=== PATIENT | female | born 1950 | race African-American/Black ===

== ENCOUNTER → 2021-02-22 | Outpatient (CLI) | payer OTHER ==
[~2021-02-22] MED LIST: ATOR40TA59 PO; DORZ10DR OP; FAMO20TA5 PO; GABA600T7 PO; IRBE1TAB3 PO; LATA2.5D2 OU; PANT40TA77 PO; SITA1TAB11 PO; TRAM50TA PO; VENL37.56 PO
--- NOTE | 2021-02-23 13:46 | RAD ---
US PELVIS W/TV History: Postmenopausal bleeding. History of cervical dysplasia. Comparison: None. Technique: Sonographic examination of the pelvis was performed with transabdominal and transvaginal t echnique. Findings: Uterus- Uterine parenchyma: Mildly heterogeneous. No focal lesions.. Uterine measurements: 6.8 x 3.0 x 4.1 cm Cervix: Unremarkable. Endometrium- Endometrial Stripe: No abnormal fluid collections in the endometrial cavity, no obvious mass, and no abnormal blood flow within the endometrium by Doppler. Thickness: 1.5 mm. Adnexa- The ovaries are not identified with transabdominal or transvaginal technique due to adjacent bowel ga s and limited sonographic windows. No adnexal masses. Fluid: No abnormal free fluid in the pelvis. Additional findings: None. Impression: 1. No endometrial masses or thickening. Endometrial thickness of 1.5 mm may represent atrophy. 2. Nonvisualization of the ovaries. No adnexal masses. Electronically signed by: Miles Pemberton MD (02/23/2021 1:43 PM) [facility]
== END ==
LOC: US 14:44
PROVIDERS: ATTEND Obstetrics & Gynecology
DX: N95.0 Postmenopausal bleeding (principal); Z87.410 Personal history of cervical dysplasia
CPT/HCPCS: 76830; 76856

== ENCOUNTER 2021-03-01 06:04 | Day surgery (SDC) | payer OTHER ==
[~2021-03-01] VITALS: Ht 157.5 cm; Wt 81.0 kg
[~2021-03-01 06:04] MED LIST changes: +HYDROmorphone 2 MG/ML VIAL IVP PRN; +IV RINGERS,LACTATED 1000ML 1,000 ML IV SCH; +MORPHINE SULFATE 2 MG/ML INJ. IVP PRN; +PROCHLORPERAZINE 10 MG/2 ML VIAL. IVP PRN; +fentaNYL PF VIAL 100 MCG/2 ML VIAL IVP PRN
[2021-03-01 06:41] VITALS: BP 175/83
[2021-03-01] MEDS ORDERED: DEXAMETHASONE SOD PHOS 4 MG/ML VIAL ONE (06:45)
[2021-03-01] MEDS ORDERED: ONDANSETRON PF 4 MG/2 ML VIAL. ONE (06:45)
[2021-03-01] MEDS ORDERED: PROPOFOL 10 MG/ML (20ML) VIAL. IV ONE (06:45)
[2021-03-01] MEDS ORDERED: BUPIVACAINE MPF 0.5% 30 ML VIAL. ONE (06:56)
[2021-03-01] MEDS ORDERED: INSULIN LISPRO 100 UNIT/ML 3ML VIAL for OP,RR ONLY. SQ PRN (07:00)
[2021-03-01] MEDS ORDERED: TRAM50TA PO (07:42)
--- NOTE | 2021-03-01 07:45 | DISCH ---
DISCHARGE INSTRUCTIONS Condition on Discharge Condition on Discharge: Stable Activity After Discharge Activity Instructions for Disc: Other, see below (Avoid hard grasping, may continue fine motor use such as eating writing typing) Lifting Instructions after Dis: No heavy lifting Weight Bearing Status after Di: As tolerated Diet after Discharge Diet after Discharge: Regular Wound Incision Care Wound/Incision Care: Ice to area for comfort, Change dressing (May remove dressing in 3 days and cover with Band-Aid, may shower but no soaking until sutures removed) Contacting the DRBrennen after DC Call your doctor for: Concerns you may have Follow-Up Follow up with: Dr. Eng or Tasha 10 days KYMBERLY ENG MD Mar 01, 2021 07:45
--- NOTE | 2021-03-01 08:14 | PDOC4 ---
Operative Note Operative Note Date of surgery: 03/01/2021 Preoperative diagnosis: Left ring trigger finger Postoperative diagnosis: Same Operative procedure: Left ring trigger finger release Surgeon: Albertina Edger Hand: Kerrie turner Anesthesia: General Estimated blood loss: 1 cc Complications: None Operative indications: Please see my orthopedic clinic note for detailed operative indications and note that patient has had ongoing symptoms of painful catching of her left ring finger unresponsive to nonoperative management we had talked about the possibility of trigger finger release possibility of infection nerve or blood vessel damage continued pain or scarring and the rationale for eliminating the triggering. All her questions were answered she agrees to proceed with surgical evaluation and treatment Operative text: Patient was identified procedure verified patient placed in the supine position on the operating table. After adequate amounts of general anesthesia were administered the left upper extremity was prepped and draped in standard sterile fashion with an upper arm tourniquet. After timeout was performed patient procedure identified and verified the left upper extremity was exsanguinated by Esmarch bandage tourniquet inflated to 250 mmHg. A transverse incision was made in line with the distal palmar crease and the A1 elly was divided fully to eliminate the triggering. She was noted to have significant fluid in the tendon sheath consistent with irritation in the tendon sheath flexor superficialis and profundus were otherwise intact thorough irrigation carried out normal saline solution closure accomplished with nylon suture vertical mattress fashion sterile dressings were applied fingers noted be warm pink following deflation of tourniquet patient was returned to recovery room stable condition having tolerated procedure well. Kerrie turner was present for the procedure and assisted in patient positioning prepping draping retraction closure and dressings KYMBERLY GONZALEZ MD Mar 01, 2021 08:14
[2021-03-01 08:19] VITALS: BP 168/63
[2021-03-01] MEDS ORDERED: traMADol 50 MG TABLET ONE (08:21)
[2021-03-01] MEDS ORDERED: traMADol 50 MG TABLET PO ONE (08:30)
== END 2021-03-01 08:48 | disposition home or self-care (01) ==
LOC: SURG 06:04
PROVIDERS: ATTEND Orthopaedic Surgery
DX: M65.342 Trigger finger, left ring finger (principal); I10 Essential (primary) hypertension; E78.00 Pure hypercholesterolemia, unspecified; G47.30 Sleep apnea, unspecified; K21.9 Gastro-esophageal reflux disease without esophagitis; E11.9 Type 2 diabetes mellitus without complications; Z79.899 Other long term (current) drug therapy; Z98.890 Other specified postprocedural states; Z98.51 Tubal ligation status; Z72.89 Other problems related to lifestyle
CPT/HCPCS: 26055; 82962; J0690; J1100; J2405; J2704; J3490; A4209; A4657; A4930; A6402; A6452

== ENCOUNTER → 2021-10-27 | Outpatient (CLI) | payer MEDICARE ==
[~2021-10-27] MED LIST changes: -HYDROmorphone 2 MG/ML VIAL IVP PRN; -IV RINGERS,LACTATED 1000ML 1,000 ML IV SCH; -MORPHINE SULFATE 2 MG/ML INJ. IVP PRN; -PROCHLORPERAZINE 10 MG/2 ML VIAL. IVP PRN; -fentaNYL PF VIAL 100 MCG/2 ML VIAL IVP PRN
--- NOTE | 2021-10-27 15:19 | RAD ---
EXAM: Bilateral digital diagnostic mammogram with tomosynthesis; bilateral breast sonogram. HISTORY: 71-year-old female presents with bilateral breast pain. TECHNIQUE: Full-field digital craniocaudal and mediolateral oblique 2D and 3D tomosynthesis images of both breasts are obtained for evaluation. Computer aided detection was applied. Sonographic imaging of both breasts targeted to sites of mammographic nodularity and reported pain was performed. COMPARISON: There is no prior study at the time of dictation for comparison. Request is made for prio r studies performed at an outside facility. BREAST PARENCHYMAL DENSITY: Level C - Heterogeneously dense. FINDINGS: There are multiple areas of asymmetry and nodularity within both breasts, the multiplicity of which favors benignity. There are multiple benign calcifications. There is a circumscribed nodule within the posterior 2:00 position of the left breast. No convincing architectural distortion or susp icious calcification morphology is seen. Sonographic imaging of the right breast demonstrates an 8 mm oval hypoechoic lesion with internal ech ogenic focus at the 9:00 position 5 cm from the nipple, possibly a small fibroadenoma or complicated cyst. There are multiple additional scattered cysts and areas of fibrocystic change. There is a benig n axillary lymph node. Sonographic imaging of the left breast demonstrates a 6 mm benign-appearing intramammary lymph node w ith fatty hilum and thin cortex at the 2:00 position 9 cm from the nipple, corresponding with the cir cumscribed nodule described on the mammographic images. There is a 5 mm circumscribed hypoechoic lesi on at the 1:00 position 12 cm from the nipple, the appearance of which favors a cyst. There are few t iny cysts and scattered areas of fibrocystic change. There is a benign axillary lymph node. IMPRESSION: 1. 8 mm suspected fibroadenoma or complicated cyst at the 9:00 position of the right breast 5 cm from the nipple. 2. 6 mm benign intramammary lymph node at the 2:00 position of the left breast 9 cm from the nipple a nd suspected 5 mm cyst within the 1:00 position of the left breast 12 cm from the nipple. 3. No convincing suspicious mammographic finding. 4. BI-RADS Category 3: Probably benign finding(s). Short term follow up with a right breast sonogram in 6 months is recommended. 5. An addendum to this report will be submitted when requested comparison studies are available. If your mammogram demonstrates that you have dense breast tissue, which could hide abnormalities, and if you have other risk factors for breast cancer that have been identified, you might benefit from s upplemental screening tests that may be suggested by your ordering physician. Dense breast tissue, i n and of itself, is a relatively common condition. This information is not provided to cause undue c oncern, but rather to raise your awareness and to promote discussion with your physician regarding th e presence of other risk factors, in addition to dense breast tissue. A report of your mammography re sults will be sent to you and your physician. You should contact your physician if you have any ques tions or concerns regarding this report. Mammography is a sensitive method for finding small breast cancers, but it does not detect them all a nd is not a substitute for careful clinical examination. A negative mammogram does not negate a clin ically suspicious finding and should not result in delay in biopsying a clinically suspicious abnorma lity. PQRS compliance statement - Patient information was entered into a reminder system with a target due date for the next mammogram. "Our facility is accredited by the [employer] Mammography Program." Electronically signed by: Dana Vargas MD (10/27/2021 3:17 PM) [id number]
--- NOTE | 2021-10-27 16:09 | RAD ---
EXAMINATION: Thyroid sonogram. INDICATION: Thyroid nodule. COMPARISON: None. Technique: Real-time grayscale and color Doppler imaging of the thyroid gland was performed per melissa col. Findings: The right thyroid lobe measures: 2.6 x 1.7 x 1.2 cm. The left thyroid lobe measures: 3.7 x 1.6 x 2.0 cm. The isthmus measures: 0.51 cm. Estimated total number of nodules >/= 1cm: 1 Number of spongiform nodules >/= 2cm not described below (TR1): 0 The thyroid parenchyma is diffusely heterogeneous. There are benign-appearing cervical chain lymph no aj. Nodule #1: Maximum size: 11 mm Location: Inferior left thyroid lobe. Composition: Solid or almost completely solid (2 points) Echogenicity: Very hypoechoic (3 points) Shape: [id number] (0 points) Margins: Smooth (0 points) Echogenic foci: None or large comet-tail artifacts (0 points) ACR TI-RADS total points: 5. ACR TI-RADS risk category: TR4 (4-6 points) - Moderately suspicious. FNA if ?1.5 cm. Follow if ?1 cm. Nodule #2: Maximum size: 6 mm Location: Mid inferior right thyroid lobe. Composition: Cystic/almost completely cystic (0 points). Echogenicity: Anechoic (0 points) Shape: [id number] (0 points) Margins: Ill-defined (0 points) Echogenic foci: None or large comet-tail artifacts (0 points) ACR TI-RADS total points: 0. ACR TI-RADS risk category: TR1 (0 points) - Benign; no FNA. IMPRESSION: 1. 11 mm inferior left thyroid nodule. TI-RADS Category 4. Sonographic follow-up is recommended accor ding to ACR guidelines. 2. Tiny benign right thyroid cyst. ACR TI-RADS recommendations TR5 (?7 points) - FNA if ? 1cm, follow-up if 0.5 - 0.9 cm every year for 5 years TR4 (4-6 points) - FNA if ? 1.5cm, follow-up if 1 - 1.4 cm in 1, 2, 3 and 5 years TR3 (3 points)- FNA if ? 2.5cm, follow-up if 1.5 - 2.4 cm in 1, 3 and 5 years TR2 (2 points) & TR1 (0 points) - No FNA or follow-up *Decision to biopsy should include other considerations such as patient demographics and relevant cli nical information. Reference: TIRADS 2017 J Am Sweta Radiol 2017;[id number] Electronically signed by: Dana Vargas MD (10/27/2021 4:07 PM) [id number]
== END ==
LOC: MAMMO 14:21
PROVIDERS: ATTEND Family Medicine
DX: E04.9 Nontoxic goiter, unspecified (principal); N63.21 Unspecified lump in the left breast, upper outer quadrant; N64.89 Other specified disorders of breast
CPT/HCPCS: 76536; 76641; 77066; G0279; 77062